=== PATIENT | female | born 1975 | race African-American/Black ===

== ENCOUNTER 2017-05-20 15:42 | Emergency (ER) | payer SELFPAY ==
[2017-05-20 16:10] LABS: #Basophils 0.1 thou/uL (0.0-0.2); #Eosinphils 0.3 thou/uL (0.0-0.7); #Lymphocytes 2.4 thou/uL (1.20-3.40); #Monocytes 0.4 thou/uL (0.11-0.59); #Neutrophils 2.3 thou/uL (1.40-6.50); %Basophils 1.4 % (0.0-1.0); %Lymphocytes 44.4 % (21.0-51.0); %Monocytes 6.4 % (0.0-10.0); %Neutrophils 41.9 % (42.0-75.0); Hemoglobin 13.8 g/dL (12.0-16.0); Mean Corpuscular Hemoglobin 27.9 pg (27.0-31.0); Mean Corpuscular Volume 84.6 fl (81.0-99.0); Mean Platelet Volume 8.2 fL (7.4-10.4); Platelet Count 213 thou/uL (130-400); RBC Distribution Width 11.6 % (11.5-14.5); Red Blood Cell (RBC) Count 4.96 mill/uL (4.20-5.40); White Blood Cell (WBC) Count 5.4 thou/uL (4.8-10.8)
[2017-05-20 16:29] LABS: ALT (SGPT) 21 U/L (8-55); AST (SGOT) 19 U/L (5-34); Albumin 3.8 g/dL (3.5-5.0); Alkaline Phosphatase 68 U/L (40-150); Anion Gap 9 mmol/L (10-20); BUN (Urea Nitrogen) 10 mg/dL (7.0-18.7); Bilirubin, Total 0.5 mg/dL (0.2-1.2); Calc. Creatinine Clearance 0 mL/min (70-130); Carbon Dioxide 25 mmol/L (22-29); Chloride 109 mmol/L (98-107); Estimated GFR-MDRD Greater than 90; Globulin 3.3 g/dL (2.4-3.5); Glucose 98 mg/dL (70-105); Potassium 3.9 mmol/L (3.5-5.1); Protein, Total 7.1 g/dL (6.0-8.3); Sodium 139 mmol/L (136-145)
[2017-05-20 17:53] LABS: Bilirubin Negative (Negative); Blood, Urine Negative (Negative); Clarity CLEAR (Clear); Glucose, Urine (Dipstick) Negative (Negative); Leukocyte Negative (Negative); Nitrite Negative (Negative); Protein, Urine (Dipstick) Negative (Neg-Trace); pH, Urine 7.5 (5.0-9.0)
[2017-05-20] MEDS ORDERED: Ketorolac Tromethamine 30 MG/ML VIAL ONE (17:53)
[2017-05-20] MEDS ORDERED: Metoclopramide HCl 10 MG/2 ML VIAL ONE (17:53)
[2017-05-20] MEDS ORDERED: diphenhydrAMINE 50 MG/ML VIAL ONE (17:53)
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
== END 2017-05-20 19:06 | disposition home or self-care (01) ==
LOC: ERS 15:42
DX: R42 Dizziness and giddiness (principal); T50.905A Adverse effect of unspecified drugs, medicaments and biological substances, initial encounter
CPT/HCPCS: 36415; 70450; 80053; 81003; 85025; 93005; 96365; 96375; J1200; J1885; J2765

== ENCOUNTER 2017-11-02 11:28 | Emergency (ER) | payer SELFPAY ==
[2017-11-02 12:20] LABS: Bilirubin Negative (Negative); Blood, Urine Negative (Negative); Clarity CLOUDY (Clear); Glucose, Urine (Dipstick) Negative (Negative); Leukocyte Small (Negative); Nitrite Negative (Negative); Protein, Urine (Dipstick) Negative (Neg-Trace); Specific Gravity, Urine 1.017 (1.002-1.036)
[2017-11-02 12:22] LABS: Bacteria/HPF Rare-Few HPF (None Seen); Hyaline Casts/LPF 0-3 HYALINE CAST LPF (0-3 Hyaline)
[2017-11-02] MEDS ORDERED: ISOVUE-370 76%-LOCM 1 ML ONE (12:33)
[2017-11-02 13:00] LABS: #Eosinphils 0.3 thou/uL (0.0-0.7); #Lymphocytes 2.1 thou/uL (1.20-3.40); #Monocytes 0.4 thou/uL (0.11-0.59); #Neutrophils 2.4 thou/uL (1.40-6.50); %Basophils 0.8 % (0.0-1.0); %Eosinophils 5.1 % (0.0-10.0); %Lymphocytes 40.7 % (21.0-51.0); %Monocytes 6.8 % (0.0-10.0); %Neutrophils 46.6 % (42.0-75.0); Hemoglobin 14.3 g/dL (12.0-16.0); Mean Corpuscular HGB CONC 34.6 g/dL (32.0-36.0); Mean Corpuscular Hemoglobin 28.5 pg (27.0-31.0); Mean Corpuscular Volume 82.4 fL (78.0-98.0); Mean Platelet Volume 7.6 fL (7.4-10.4); Platelet Count 197 thou/uL (130-400); RBC Distribution Width 11.2 % (11.5-14.5); White Blood Cell (WBC) Count 5.2 thou/uL (4.8-10.8)
[2017-11-02] MEDS ORDERED: Metoclopramide HCl 10 MG/2 ML VIAL ONE (13:12)
[2017-11-02] MEDS ORDERED: Ketorolac Tromethamine 30 MG/ML VIAL ONE (13:12)
[2017-11-02] MEDS ORDERED: diphenhydrAMINE 50 MG/ML VIAL ONE (13:12)
--- NOTE | 2017-11-02 13:21 | CT ---
CT OF THE ABDOMEN AND PELVIS WITH CONTRAST: COMPARISON: None. HISTORY: Abdominal pain for the past week with a crampy type of abdominal pain. Possible vaginal discharge fo r a few weeks. TECHNIQUE: Multiple contiguous axial images were obtained in a CTA of the abdomen and pelvis with contrast. Cor onal reformats were performed. FINDINGS: There are hypodensities in the liver measuring up to 2.8 cm in size which likely represent cysts. Th e gallbladder, kidneys, adrenal glands, spleen, and pancreas are unremarkable. No free air, free flu id, or stranding changes are seen in the ad or pelvis. The patient is status post hysterectomy. The large and small bowel are unremarkable. The appendix i s not definitely seen. No abdominal or pelvic lymphadenopathy are present. The visualized inferior thorax and abdominal wall soft tissues are unremarkable. The bones are unrem arkable. IMPRESSION: 1. No evidence of acute intraabdominal/pelvic abnormality. 2. Hepatic cysts. POS: [facility]
[2017-11-02 13:25] LABS: ALT (SGPT) 20 U/L (8-55); AST (SGOT) 17 U/L (5-34); Albumin 3.7 g/dL (3.5-5.0); Alkaline Phosphatase 64 U/L (40-150); Anion Gap 8 mmol/L (10-20); BUN (Urea Nitrogen) 8 mg/dL (7.0-18.7); Bilirubin, Total 0.4 mg/dL (0.2-1.2); Calc. Creatinine Clearance 0 mL/min (70-130); Calcium 9.8 mg/dL (7.8-10.44); Carbon Dioxide 29 mmol/L (22-29); Chloride 108 mmol/L (98-107); Estimated GFR-MDRD Greater than 90; Globulin 3.3 g/dL (2.4-3.5); Glucose 94 mg/dL (70-105); Lipase 28 U/L (8-78); Potassium 3.6 mmol/L (3.5-5.1); Sodium 141 mmol/L (136-145)
[2017-11-04 02:06] LABS: Chlamydia by PCR Not Detected (NotDetected); GC by PCR Not Detected (NotDetected)
== END 2017-11-02 14:23 | disposition home or self-care (01) ==
LOC: ERS 11:28
DX: R10.9 Unspecified abdominal pain (principal); R51 Headache; K21.9 Gastro-esophageal reflux disease without esophagitis
CPT/HCPCS: 36415; 74177; 80053; 81003; 81015; 83690; 85025; 87086; 87480; 87491; 87510; 87591; 87660; 96365; 96375; J1200; J1885; J2765

== ENCOUNTER 2017-12-07 16:15 | Emergency (ER) | payer SELFPAY ==
[2017-12-07] MEDS ORDERED: Ketorolac Tromethamine 30 MG/ML VIAL ONE (16:50)
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
== END 2017-12-07 18:52 | disposition home or self-care (01) ==
LOC: ERS 16:15
DX: S00.83XA Contusion of other part of head, initial encounter (principal); M25.511 Pain in right shoulder; M79.672 Pain in left foot; K21.9 Gastro-esophageal reflux disease without esophagitis; W50.0XXA Accidental hit or strike by another person, initial encounter
CPT/HCPCS: 70486; 96372; J1885